=== PATIENT | female | born 1960 | race Caucasian/White ===

== ENCOUNTER 2017-09-06 16:40 | Emergency (ER) | payer BC ==
--- NOTE | 2017-09-06 17:01 | ERPHSYRPT ---
- History of Present Illness Time Seen by Provider: 09/06/17 16:49 Source: patient, EMS Exam Limitations: no limitations Physician History: The patient is a 57-year-old female brought in by ambulance from her work she had a sudden episode of feeling weak and dizzy. She is dizzy when she opens her eyes and she states the room spins when this occurs. She is not very dizzy currently. She is slightly nauseated. No vomiting. She is breathing rapidly. Her fingers and toes are tingling. She denies headache or chest pain. Her and the patient call this episode a "drop out". The patient has experienced these "drop out" episodes periodically for the last 15 years. The dizziness is new today. When she has been episode, she becomes very weak and will gradually regain her strength over the course of the day as she rests. She wore a Holter monitor recently that was uneventful. She has never had an EEG. She has a history of migraine headaches with a left-sided scotoma. Today she does not have a headache. Her past medical history is significant for hypothyroidism and migraines. Timing/Duration: today, hour(s) (1), intermittent, sudden Severity: severe Modifying Factors: Improves With: nothing Associated Symptoms: nausea, No vomiting, No chest pain, No headaches, No syncope, No seizure Allergies/Adverse Reactions: codeine Allergy (Verified 09/06/17 16:54) naproxen Allergy (Verified 09/06/17 16:54) oxycodone HCl [From Tylox] Allergy (Verified 09/06/17 16:54) Penicillins Allergy (Verified 09/06/17 16:54) Home Medications: Levothyroxine Sodium 75 Mcg [Synthroid 75 Mcg] 75 mg PO DAILY 09/09/14 [ History] Hx Tetanus, Diphtheria Vaccination/Date Given: Yes Hx Influenza Vaccination/Date Given: No Hx Pneumococcal Vaccination/Date Given: No - Review of Systems Constitutional: Weakness Eyes: No Symptoms Ears, Nose, & Throat: No Symptoms Respiratory: No Cough, No Dyspnea Cardiac: No Chest Pain, No Edema, No Syncope Abdominal/Gastrointestinal: Nausea Genitourinary Symptoms: No Dysuria Musculoskeletal: No Back Pain, No Neck Pain Skin: No Rash Neurological: Dizziness Psychological: No Symptoms Endocrine: No Symptoms Hematologic/Lymphatic: No Symptoms Immunological/Allergic: No Symptoms All Other Systems: Reviewed and Negative - Past Medical History Pertinent Past Medical History: Yes ENT History: No Pertinent History Cardiac History: No Pertinent History Respiratory History: Bronchitis, Pneumonia Endocrine Medical History: No Pertinent History, Hypothyroidism Musculoskeletal History: No Pertinent History GI Medical History: No Pertinent History Psycho-Social History: No Pertinent History Female Reproductive Disorders: Pelvic Inflammatory Disease - Past Surgical History Past Surgical History: Yes Neuro Surgical History: No Pertinent History Cardiac: No Pertinent History Gastrointestinal: No Pertinent History Musculoskeletal: Orthopedic Surgery Female Surgical History: Section Other Surgical History: L knee arthroscopy, salpingo oophorectomy, no hystrectomy - Social History Smoking Status: Former smoker Exposure to second hand smoke: No Drug Use: none Patient Lives Alone: No - Nursing Vital Signs Nursing Vital Signs: Initial Vital Signs Temperature 97.8 F 09/06/17 16:40 Pulse Rate 87 09/06/17 16:40 Respiratory Rate 18 09/06/17 16:40 Blood Pressure 136/76 09/06/17 16:40 O2 Sat by Pulse Oximetry 100 09/06/17 16:40 Pain Scale Pain Intensity 0 - Physical Exam General Appearance: moderate distress, anxiety Eye Exam: PERRL/EOMI, eyes nml inspection Ears, Nose, Throat Exam: normal ENT inspection, TMs normal, pharynx normal, moist mucous membranes Neck Exam: normal inspection, non-tender, supple, full range of motion Respiratory Exam: normal breath sounds, lungs clear, No respiratory distress Cardiovascular Exam: regular rate/rhythm, normal heart sounds, normal peripheral pulses Gastrointestinal/Abdomen Exam: soft, normal bowel sounds, No tenderness, No mass Pelvic Exam: not done Rectal Exam: not done Back Exam: normal inspection, normal range of motion, No CVA tenderness, No vertebral tenderness Extremity Exam: normal inspection, normal range of motion, pelvis stable Neurologic Exam: alert, oriented x 3, cooperative, normal mood/affect, nml cerebellar function, nml station & gait, sensation nml, No motor deficits Skin Exam: normal color, warm, dry, No rash Lymphatic Exam: No adenopathy SpO2 Interpretation: normal SpO2: 100 Oxygen Delivery: Room Air - Course EKG Interpreted by Me: RATE, Sinus Rhythm, NORMAL AXIS, NORMAL INTERVALS, NORMAL QRS, NORMAL ST-T - CT Exams Head CT Interpretation: Tele-radiologist Report, No Fracture, No/Intracranial Hemorrhag, Other (8 mm L parietal skin tag per Dr Cook.) Ordered Tests: Active Orders 24 hr Category Date Time Status Stripper 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 STAT Care 09/06/17 17:07 Active EKG-ER Only STAT Care 09/06/17 17:06 Active IV Insertion STAT Care 09/06/17 17:06 Active Orthostatic Vital Signs STAT Care 09/06/17 17:08 Active Pulse Oximetry (ED) STAT Care 09/06/17 17:06 Active HEAD WITHOUT CONTRAST [CT] Stat Exams 09/06/17 17:07 Taken CBC W DIFF Stat Lab 09/06/17 17:59 Completed CMP Stat Lab 09/06/17 17:59 Completed Lactic Acid Stat Lab 09/06/17 17:06 Completed TROPONIN Q3H Lab 09/06/17 Completed TROPONIN Q3H Lab 09/06/17 20:15 Ordered TROPONIN Q3H Lab 09/06/17 23:15 Ordered TROPONIN Q3H Lab 09/07/17 02:15 Ordered TROPONIN Q3H Lab 09/07/17 05:15 Ordered UA W/ MICROSCOPIC Stat Lab 09/06/17 18:37 Completed Urine Triage Profile Stat Lab 09/06/17 18:37 Received Medication Summary Discontinued Medications Generic Name Dose Route Start Last Admin Trade Name Freq PRN Reason Stop Dose Admin Sodium Chloride 1,000 mls @ 999 mls/hr 09/06/17 17:06 09/06/17 18:45 Sodium Chloride 0.9% 1000 Ml IV 09/06/17 18:06 Infused .Q1H1M STA Infusion Sodium Chloride Confirm 09/06/17 17:33 Sodium Chloride 0.9% 1000 Ml Administered 09/06/17 17:34 Dose 1,000 mls @ ud .ROUTE .STK-MED ONE Potassium Chloride 10 meq 09/06/17 18:39 09/06/17 18:54 Klor Con 10 Meq PO 09/06/17 18:40 10 meq STAT ONE Administration Potassium Chloride Confirm 09/06/17 18:53 Klor Con 10 Meq Administered 09/06/17 18:54 Dose 10 meq PO .STK-MED ONE Promethazine HCl 25 mg 09/06/17 17:06 09/06/17 17:41 Phenergan 25 Mg Inj IV 09/06/17 17:07 25 mg STAT ONE Administration Promethazine HCl Confirm 09/06/17 17:33 Phenergan 25 Mg Inj Administered 09/06/17 17:34 Dose 25 mg .ROUTE .STK-MED ONE Lab/Rad Data: Laboratory Result Diagrams 09/06/17 17:59 09/06/17 17:59 Laboratory Results 09/06/17 09/06/17 09/06/17 Range/Units Unknown 18:37 17:59 WBC (4.0-10.5) K/mm3 RBC (4.1-5.4) M/mm3 Hgb (12.0-16.0) gm/dl Hct (35-47) % MCV (78-100) fl MCH (26-32) pg MCHC (32-36) g/dl RDW (11.5-14.0) % Plt Count (150-450) K/mm3 MPV (6-9.5) fl Gran % (36.0-66.0) % Eos # (Auto) (0-0.5) Absolute Lymphs (auto) (1.0-4.6) Absolute Monos (auto) (0.0-1.3) Lymphocytes % (24.0-44.0) % Monocytes % (0.0-12.0) % Eosinophils % (0.00-5.0) % Basophils % (0.0-0.4) % Absolute Granulocytes (1.4-6.9) Basophils # (0-0.4) Sodium 140 (137-145) mmol/L Potassium 3.4 L (3.5-5.1) mmol/L Chloride 105 (98-107) mmol/L Carbon Dioxide 24 (22-30) mmol/L Anion Gap 15.5 H (5-15) MEQ/L BUN 14 (7-17) mg/dL Creatinine 0.57 (0.52-1.04) mg/dL Estimated GFR > 60.0 ML/MIN Glucose 104 (74-106) mg/dL Lactic Acid (0.4-2.0) Calcium 9.8 (8.4-10.2) mg/dL Total Bilirubin 1.00 (0.2-1.3) mg/dL AST 18 (14-36) U/L ALT 20 (0-35) U/L Alkaline Phosphatase 105 (38-126) U/L Troponin I < 0.012 (0.000-0.034) ng/mL Serum Total Protein 7.2 (6.3-8.2) g/dL Albumin 4.3 (3.5-5.0) g/dL Ur Collection Type VOID Urine Color YELLOW (YELLOW) Urine Appearance CLEAR (CLEAR) Urine pH 8.0 (5-6) Ur Specific [place] 1.010 (1.005-1.025) Urine Protein NEGATIVE (Negative) Urine Ketones MODERATE (NEGATIVE) Urine Blood NEGATIVE (0-5) Soren/ul Urine Nitrite NEGATIVE (NEGATIVE) Urine Bilirubin NEGATIVE (NEGATIVE) Urine Urobilinogen NORMAL (0-1) mg/dL Ur Leukocyte Esterase TRACE (NEGATIVE) Urine Microscopic RBC 2-5 (0-2) /HPF Urine Microscopic WBC 2-5 (0-5) /HPF Ur Epithelial Cells FEW (FEW) /HPF Urine Bacteria FEW (NEGATIVE) /HPF Urine Culture Reflexed NO (NO) Urine Glucose NEGATIVE (NEGATIVE) mg/dL Specimen Received 09/06/17 1830 09/06/17 09/06/17 Range/Units 17:59 17:06 WBC 6.8 (4.0-10.5) K/mm3 RBC 4.27 (4.1-5.4) M/mm3 Hgb 12.9 (12.0-16.0) gm/dl Hct 37.5 (35-47) % MCV 87.8 (78-100) fl MCH 30.2 (26-32) pg MCHC 34.4 (32-36) g/dl RDW 13.4 (11.5-14.0) % Plt Count 267 (150-450) K/mm3 MPV 10.1 H (6-9.5) fl Gran % 65.2 (36.0-66.0) % Eos # (Auto) 0.04 (0-0.5) Absolute Lymphs (auto) 1.80 (1.0-4.6) Absolute Monos (auto) 0.49 (0.0-1.3) Lymphocytes % 26.6 (24.0-44.0) % Monocytes % 7.2 (0.0-12.0) % Eosinophils % 0.6 (0.00-5.0) % Basophils % 0.4 (0.0-0.4) % Absolute Granulocytes 4.41 (1.4-6.9) Basophils # 0.03 (0-0.4) Sodium (137-145) mmol/L Potassium (3.5-5.1) mmol/L Chloride (98-107) mmol/L Carbon Dioxide (22-30) mmol/L Anion Gap (5-15) MEQ/L BUN (7-17) mg/dL Creatinine (0.52-1.04) mg/dL Estimated GFR ML/MIN Glucose (74-106) mg/dL Lactic Acid 1.8 (0.4-2.0) Calcium (8.4-10.2) mg/dL Total Bilirubin (0.2-1.3) mg/dL AST (14-36) U/L ALT (0-35) U/L Alkaline Phosphatase (38-126) U/L Troponin I (0.000-0.034) ng/mL Serum Total Protein (6.3-8.2) g/dL Albumin (3.5-5.0) g/dL Ur Collection Type Urine Color (YELLOW) Urine Appearance (CLEAR) Urine pH (5-6) Ur Specific [place] (1.005-1.025) Urine Protein (Negative) Urine Ketones (NEGATIVE) Urine Blood (0-5) Soren/ul Urine Nitrite (NEGATIVE) Urine Bilirubin (NEGATIVE) Urine Urobilinogen (0-1) mg/dL Ur Leukocyte Esterase (NEGATIVE) Urine Microscopic RBC (0-2) /HPF Urine Microscopic WBC (0-5) /HPF Ur Epithelial Cells (FEW) /HPF Urine Bacteria (NEGATIVE) /HPF Urine Culture Reflexed (NO) Urine Glucose (NEGATIVE) mg/dL Specimen Received - Progress Progress: improved Progress Note: 09/06/17 18:21 Pt is feeling better after phenergan 25 mg and fluids IV. Pt became dizzy in radiology when sat up from CT scan. Now back in ER pt is no longer dizzy. Discussed with : Stuart Will see patient in: office (with Dr Monk) Counseled pt/family regarding: lab results, diagnosis, need for follow-up, rad results - Departure Time of Disposition: 19:14 Departure Disposition: Home Clinical Impression: Dizziness, Hypokalemia Condition: Stable Critical Care Time: No Referrals: HAYLEE MONK [Primary Care Provider] - Additional Instructions: You had an episode of weakness and dizziness. You also have very mild low serum potassium. You were given potassium 10 mEq in the ER. The head CT was negative. You were given Phenergan 25 mg and fluids by IV in the ER. Please follow-up on Saturday with Dr. Monk and discussed the possibility of having an EEG done. EEGs are done Saturday through Saturday at this hospital.
[2017-09-06] MEDS ORDERED: Phenergan 25 MG INJ IV ONE (17:06)
[2017-09-06] MEDS ORDERED: Sodium Chloride 0.9% 1000 ML 1,000 ML IV STA (17:06)
[2017-09-06] MEDS ORDERED: Sodium Chloride 0.9% 1000 ML 1,000 ML ONE (17:33)
[2017-09-06] MEDS ORDERED: Phenergan 25 MG INJ ONE (17:33)
[2017-09-06 18:04] LABS: BASOPHIL % 0.4 % (0.0-0.4); Basophil (Absolute #) 0.03 (0-0.4); Eosinophil % 0.6 % (0.00-5.0); Eosinophil (Absolute #) 0.04 (0-0.5); Granulocyte Absolute (ANC) 4.41 (1.4-6.9); Granulocytes % 65.2 % (36.0-66.0); Hematocrit 37.5 % (35-47); Hemoglobin 12.9 gm/dl (12.0-16.0); Lymphocytes % 26.6 % (24.0-44.0); Mean Cell Volume 87.8 fl (78-100); Mean Corpuscular Hemoglobin 30.2 pg (26-32); Mean Corpuscular Hgb Concent. 34.4 g/dl (32-36); Mean Platelet Volume 10.1 fl (6-9.5); Monocyte (Absolute #) 0.49 (0.0-1.3); Monocytes % 7.2 % (0.0-12.0); Platelet Count 267 K/mm3 (150-450); Red Blood Count 4.27 M/mm3 (4.1-5.4); Red Cell Distribution Width 13.4 % (11.5-14.0); White Blood Count 6.8 K/mm3 (4.0-10.5)
[2017-09-06 18:28] LABS: ALBUMIN 4.3 g/dL (3.5-5.0); ALKALINE PHOSPHATASE 105 U/L (38-126); ANION GAP 15.5 MEQ/L (5-15); BLOOD UREA NITROGEN 14 mg/dL (7-17); CHLORIDE 105 mmol/L (98-107); Calcium 9.8 mg/dL (8.4-10.2); Carbon Dioxide 24 mmol/L (22-30); Creatinine 1 0.57 mg/dL (0.52-1.04); Glucose 104 mg/dL (74-106); Potassium 3.4 mmol/L (3.5-5.1); SGOT/AST 18 U/L (14-36); SGPT/ALT 20 U/L (0-35); SODIUM 140 mmol/L (137-145); Total Protein 7.2 g/dL (6.3-8.2)
[2017-09-06] MEDS ORDERED: Klor Con 10 MEQ PO ONE ×2 (18:39→18:53)
[2017-09-06 19:02] LABS: Appearance CLEAR (CLEAR); Bilirubin NEGATIVE (NEGATIVE); Blood NEGATIVE Ery/ul (0-5); Glucose NEGATIVE (NEGATIVE); Ketones MODERATE (NEGATIVE); Leukocyte Esterase TRACE (NEGATIVE); Nitrite NEGATIVE (NEGATIVE); Protein,Urine Dip NEGATIVE (Negative); Urobilinogen NORMAL mg/dL (0-1)
[2017-09-06 19:11] LABS: Bacteria FEW /HPF (NEGATIVE); Epithelial Cells FEW /HPF (FEW)
[2017-09-06 19:18] LABS: Amphetamine,Urine NEGATIVE (NEGATIVE); Barbiturate,Urine NEGATIVE (NEGATIVE); Benzodiazepine,Urine NEGATIVE (NEGATIVE); Cocaine,Urine NEGATIVE (NEGATIVE); Methadone,Urine NEGATIVE (NEGATIVE); Opiate,Urine NEGATIVE (NEGATIVE); PCP,Urine NEGATIVE (NEGATIVE); THC,Urine NEGATIVE (NEGATIVE)
[2017-09-06 19:33] VITALS: BP 122/64; PULSE 92; O2SAT 99
--- NOTE | 2017-09-06 21:18 | XRAY ---
Indication: Dizziness. No known injury. Multiple contiguous axial images obtained through the head without contrast. Comparison: None Normal appearing brain parenchyma, ventricles, and bony calvarium. Visualized paranasal sinuses and mastoid air cells are clear. Incidental 8 mm left anterior parietal scalp skin tag. Impression: No acute intracranial abnormalities. CTDI 68.15
== END 2017-09-06 19:33 | disposition home or self-care (01) ==
LOC: ED 16:40
DX: R42 Dizziness and giddiness (principal); E87.6 Hypokalemia; R53.1 Weakness
CPT/HCPCS: 36415; 70450; 80053; 80307; 81000; 83605; 84484; 85025; 93005; 93041; 96360; 96374; 99284; J2550; A9270-GY